=== PATIENT | female | born 2000 | race Caucasian/White ===

== ENCOUNTER 2020-10-18 13:23 | Emergency (ER) | payer BC ==
[~2020-10-18] VITALS: Ht 170.2 cm; Wt 54.9 kg
--- NOTE | 2020-10-18 13:35 | NUR ---
at bedside for assessment
--- NOTE | 2020-10-18 13:49 | NUR ---
Patient discharged to home in stable condition. No signs of acute distress noted, no physical signs of trauma noted. Patient states her mother will pick her up. Written and verbal after care instructions given. Patient verbalizes understanding of instructions. Stressed follow up or return to ER for worsening s/s.
[2020-10-18 13:50] VITALS: BP 136/83
== END 2020-10-18 13:48 | disposition home or self-care (01) ==
LOC: ER 13:24
DX: S09.90XA Unspecified injury of head, initial encounter (principal); V43.52XA Car driver injured in collision with other type car in traffic accident, initial encounter; Y92.411 Interstate highway as the place of occurrence of the external cause; R51.9 Headache, unspecified
CPT/HCPCS: A4663